=== PATIENT | male | born 1990 | race Caucasian/White ===

== ENCOUNTER 2016-12-09 11:24 | Emergency (ER) | payer OTHER ==
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
[2016-12-09] MEDS ORDERED: OXYCODONE-ACETAMINOPHEN 5-325 MG TABLET PO ONE (12:32)
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
[2016-12-09 13:02] VITALS: BP 110/75
== END 2016-12-09 12:58 | disposition home or self-care (01) ==
LOC: ER 11:24
DX: S99.922A Unspecified injury of left foot, initial encounter (principal); F17.210 Nicotine dependence, cigarettes, uncomplicated; V03.90XA Pedestrian on foot injured in collision with car, pick-up truck or van, unspecified whether traffic or nontraffic accident, initial encounter
CPT/HCPCS: 99283; 73630; 73650; L1902

== ENCOUNTER 2017-06-17 12:37 | Emergency (ER) | payer SELFPAY ==
[2017-06-17 12:41] VITALS: BP 123/76
[2017-06-17] MEDS ORDERED: METHYLPREDNISOLONE INJ 125 MG/2 ML SDV IM ONE (13:15)
[2017-06-17] MEDS ORDERED: LIDOCAINE 5% (700 MG) TRANSDERMAL ADH..PATCH TP ONE (13:15)
--- NOTE | 2017-06-17 13:15 | ER Document Report ---
HPI - HPI Pain Level: 5 Notes: Patient is a 27-year-old male who presents the ED complaining of low back pain 1 week status post injury while working. 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 Patient states since then he has had a constant dull pain to his low back without any radiation into his lower extremities. He denies any saddle anesthesia, numbness/tingling, muscle weakness/paralysis, loss of control of bowel or bladder, or urinary retention. He still eating and drinking without any difficulties. Patient denies any procedures to his back including injections patient denies any IV drug use. Denies any drug allergies, daily medications, significant past medical history otherwise. Denies any recent travel, illness, sick contacts. Denies any fever , headaches, URI, sore throat, chest pain, palpitations, syncope, cough, wheeze , shortness of breath, dyspnea, abdominal pain, nausea/vomiting/diarrhea, dysuria, hematuria, flank pain, or rash. + smoking history. - ROS Notes: REVIEW OF SYSTEMS: CONSTITUTIONAL : Denies fever, chills, or sweats. Denies recent illness. EENT: Denies eye, ear, throat, or mouth pain or symptoms. Denies nasal or sinus congestion or discharge. Denies throat, tongue, or mouth swelling or difficulty swallowing. CARDIOVASCULAR: Denies chest pain. Denies palpitations or racing or irregular heart beat. Denies ankle edema. RESPIRATORY: Denies cough, cold, or chest congestion. Denies shortness of breath, difficulty breathing, or wheezing. GASTROINTESTINAL: Denies abdominal pain or distention. Denies nausea, vomiting , or diarrhea. Denies blood in vomitus, stools, or per rectum. Denies black, tarry stools. Denies constipation. GENITOURINARY: Denies difficulty urinating, painful urination, burning, frequency, blood in urine, or discharge. MUSCULOSKELETAL: see hpi SKIN: Denies rash, lesions or sores. NEUROLOGICAL: Denies confusion or altered mental status. Denies passing out or loss of consciousness. Denies dizziness or lightheadedness. Denies headache. Denies weakness or paralysis or loss of use of either side. Denies problems with gait or speech. Denies sensory loss, numbness, or tingling. ALL OTHER SYSTEMS REVIEWED AND NEGATIVE. Dictation was performed using [email or web address] voice recognition software - CARDIOVASCULAR Cardiovascular: DENIES: Chest pain - DERM Skin Color: Normal Past Medical History - Social History Smoking Status: Current Every Day Smoker Frequency of alcohol use: None Drug Abuse: None Family History: Reviewed & Not Pertinent Patient has suicidal ideation: No Patient has homicidal ideation: No Renal/ Medical History: Denies: Hx Peritoneal Dialysis Psychiatric Medical History: Reports: Hx Depression Surgical Hx: Negative Past Surgical History: Reports: Other - PRK both eyes Vertical Provider Document - CONSTITUTIONAL Agree With Documented VS: Yes Notes: PHYSICAL EXAMINATION: GENERAL: Well-appearing, well-nourished and in no acute distress. NECK: Normal range of motion, supple without lymphadenopathy. No rigidity/ meningismus. LUNGS: Breath sounds clear to auscultation bilaterally and equal. No wheezes rales or rhonchi. HEART: Regular rate and rhythm without murmurs, rubs, gallops. ABDOMEN: Soft, nontender, nondistended abdomen. No guarding, no rebound. No masses appreciated. Normal bowel sounds present. No CVA tenderness bilaterally. No pulsatile mass. Musculoskeletal: LE's b/l: FROM to passive/active. Strength 5+/5. No focal deficits noted. Back: FROM to passive/active. Strength 5+/5. No step-offs/deformities. + mild tenderness to Rt L-paraspinal mm with mild spasming. No vertebral point tenderness. Extremities: No cyanosis, clubbing, or edema b/l. Peripheral pulses 2+. Capillary refill less than 2 seconds. NEUROLOGICAL: Normal speech, normal gait. Normal sensory, motor exams. Reflexes 2+ b/l. PSYCH: Normal mood, normal affect. SKIN: Warm, Dry, normal turgor, no rashes or lesions noted. - INFECTION CONTROL TRAVEL OUTSIDE OF THE [place] IN LAST 30 DAYS: No - RESPIRATORY O2 Sat by Pulse Oximetry: 98 Course - Re-evaluation Re-evalutation: 06/17/17 13:17 Patient is afebrile, well-hydrated, 27-year-old male presents to the ED with acute low back strain based on H&P today. Vitals are stable. PE otherwise unremarkable for any focal neurological deficits. There is no bony or vertebral point tenderness. No imaging warranted at this time. Low suspicion for any cauda equina syndrome, explaining/ruptured AAA, epidural mass lesion/ abscess, herniated disc causing severe spinal stenosis, fracture, meningitis, or any other systemic infection at this time. Solu-Medrol 125 mg given IM today along with a Lidoderm patch. I will send him home with meloxicam, Voltaren gel, and baclofen to use as directed. Recheck with your PCM in 2-3 days. Conservative measures otherwise for symptoms. Consider consult orthopedics, chiropractors, physical therapy. Return to ED with any worsening/ concerning symptoms otherwise as reviewed in discharge. Patient is in agreement. - Vital Signs Vital signs: Temp Pulse Resp BP Pulse Ox 98.4 F 68 18 123/76 98 06/17/17 12:39 06/17/17 12:39 06/17/17 12:39 06/17/17 12:39 06/17/17 12:39 Discharge - Discharge Clinical Impression: Low back strain Qualifiers: Encounter type: initial encounter Qualified Code(s): S39.012A - Strain of muscle, fascia and tendon of lower back, initial encounter Condition: Stable Disposition: HOME, SELF-CARE Instructions: Ice Packs ([facility]), Warm Packs ([facility]), Low Back Pain ([facility]), Muscle Strain ([facility]), Stretching Exercises for the Back ([facility]), Muscle Relaxers ([facility]) Additional Instructions: Rest, Ice, Compression, Elevation take meds as directed Tylenol/ibuprofen as needed Light stretches daily Strength exercises as able Moist heat and massage may help F/u with your PCP([id number]) in 2-3 days for a recheck Consider consult(s) with Orthopedics, physical therapy, chiropractics for ongoing/worsening symptoms Return to the ED with any worsening symptoms and/or development of fever, headache, chest pain, palpitations, syncope, shortness of breath, trouble breathing, abdominal pain, n/v/d, blood in stool/urine, loss of control of bowel /bladder, urinary retention, muscle weakness/paralysis, numbness/tingling, or other worsening symptoms that are concerning to you. Prescriptions: Baclofen [Baclofen 10 mg Tablet] 5 mg PO BID PRN #10 tablet PRN Reason: Diclofenac Sodium [Voltaren] 4 gm TP QID PRN #100 gel..gm. PRN Reason: Meloxicam 7.5 mg PO BID PRN #20 tablet PRN Reason: Forms: Smoking Cessation Education Referrals: [facility] [Provider Group] - Follow up as needed [facility] [Provider Group] - Follow up as needed [facility] [Provider Group] - Follow up as needed
== END 2017-06-17 14:09 | disposition home or self-care (01) ==
LOC: ER 12:37
DX: S39.012A Strain of muscle, fascia and tendon of lower back, initial encounter (principal); X58.XXXA Exposure to other specified factors, initial encounter; Y93.89 Activity, other specified; Y99.0 Civilian activity done for income or pay; F17.200 Nicotine dependence, unspecified, uncomplicated
CPT/HCPCS: 99283

== ENCOUNTER 2017-11-28 05:31 | Emergency (ER) | payer OTHER ==
[2017-11-28 05:35] VITALS: BP 114/71
--- NOTE | 2017-11-28 06:08 | ER Document Report ---
ED General - General Chief Complaint: Back Pain Stated Complaint: HIP AND LEG PAIN Time Seen by Provider: 11/28/17 06:05 Mode of Arrival: Ambulatory Information source: Patient Notes: 27-year-old male multiple allergies presents with complaints of right hip pain. Patient notes he was lifting some concrete had a twisting motion and felt a pop in his hip. Patient notes he is able to ambulate bear weight. Patient denies any loss of bowel or bladder function denies any numbness or weakness in the leg but admits the pain down his leg TRAVEL OUTSIDE OF THE [place] IN LAST 30 DAYS: No - HPI Onset: Other - 3 days Onset/Duration: Persistent Quality of pain: Sharp Severity: Mild Pain Level: 1 Associated symptoms: Body/muscle aches Exacerbated by: Movement, Walking Relieved by: Denies, Other - Patient has been taking Aleve Similar symptoms previously: No Recently seen / treated by doctor: No - Related Data Allergies/Adverse Reactions: acetaminophen [From Vicodin] Allergy (Verified 11/28/17 05:32) hydrocodone [From Vicodin] Allergy (Verified 11/28/17 05:32) ketorolac [From Toradol] Allergy (Verified 11/28/17 05:32) tramadol Allergy (Verified 11/28/17 05:32) Past Medical History - Social History Smoking Status: Current Every Day Smoker Cigarette use (# per day): Yes Chew tobacco use (# tins/day): No Smoking Education Provided: No Family History: Reviewed & Not Pertinent Renal/ Medical History: Denies: Hx Peritoneal Dialysis Psychiatric Medical History: Reports: Hx Depression Past Surgical History: Reports: Other - PRK both eyes Review of Systems - Review of Systems Notes: REVIEW OF SYSTEMS: CONSTITUTIONAL : Denies fever, chills, or sweats. Denies recent illness. EENT: Denies eye, ear, throat, or mouth pain or symptoms. Denies nasal or sinus congestion or discharge. Denies throat, tongue, or mouth swelling or difficulty swallowing. CARDIOVASCULAR: Denies chest pain. Denies palpitations or racing or irregular heart beat. Denies ankle edema. RESPIRATORY: Denies cough, cold, or chest congestion. Denies shortness of breath, difficulty breathing, or wheezing. GASTROINTESTINAL: Denies abdominal pain or distention. Denies nausea, vomiting , or diarrhea. Denies blood in vomitus, stools, or per rectum. Denies black, tarry stools. Denies constipation. GENITOURINARY: Denies difficulty urinating, painful urination, burning, frequency, blood in urine, or discharge. MUSCULOSKELETAL: Right hip pain SKIN: Denies rash, lesions or sores. HEMATOLOGIC : Denies easy bruising or bleeding. LYMPHATIC: Denies swollen, enlarged glands. NEUROLOGICAL: Denies confusion or altered mental status. Denies passing out or loss of consciousness. Denies dizziness or lightheadedness. Denies headache. Denies weakness or paralysis or loss of use of either side. Denies problems with gait or speech. Denies sensory loss, numbness, or tingling. Denies seizures. PSYCHIATRIC: Denies anxiety or stress. Denies depression, suicidal ideation, or homicidal ideation. ALL OTHER SYSTEMS REVIEWED AND NEGATIVE. Dictation was performed using [employer] voice recognition software PHYSICAL EXAMINATION: GENERAL: Well-appearing, well-nourished and in no acute distress. HEAD: Atraumatic, normocephalic. EYES: Pupils equal round and reactive to light, extraocular movements intact, sclera anicteric, conjunctiva are normal. ENT: Nares patent, oropharynx clear without exudates. Moist mucous membranes. NECK: Normal range of motion, supple without lymphadenopathy LUNGS: Breath sounds clear to auscultation bilaterally and equal. No wheezes rales or rhonchi. HEART: Regular rate and rhythm without murmurs ABDOMEN: Soft, nontender, nondistended abdomen. No guarding, no rebound. No masses appreciated. Musculoskeletal: Limited range of motion of the right hip secondary to pain patient is able to move toes knee with no difficulty no midline back pain NEUROLOGICAL: Cranial nerves grossly intact. Normal speech, normal gait. Normal sensory, motor exams PSYCH: Normal mood, normal affect. SKIN: Warm, Dry, normal turgor, no rashes or lesions noted. Physical Exam - Vital signs Vitals: Temp Pulse Resp BP Pulse Ox 97.6 F 76 18 114/71 98 11/28/17 05:32 11/28/17 05:32 11/28/17 05:32 11/28/17 05:32 11/28/17 05:32 Course - Re-evaluation Re-evalutation: 11/28/17 06:26 Patient is resting comfortably playing on his phone when I entered the room, is in no significant distress, patient denies any cauda equina concerns, patient noted not to have any narcotic prescriptions per the [place] database however has allergies to Tylenol hydrocodone Toradol and tramadol. Patient states he will be driving 8 hours away to see his children Patient denies IV drug use denies any fevers Patient's presentation is non-bony and he looks well otherwise we will treat with steroids and muscle relaxants After performing a Medical Screening Examination, I estimate there is LOW risk for EXPANDING OR RUPTURED ABDOMINAL AORTIC ANEURYSM, CAUDA EQUINA SYNDROME, EPIDURAL MASS LESION, or HERNIATED DISK CAUSING SEVERE SPINAL STENOSIS, thus I consider the discharge disposition reasonable. I have reevaluated this patient multiple times and no significant life threatening changes are noted. The patient and I have discussed the diagnosis and risks, and we agree with discharging home and close follow-up. We also discussed returning to the Emergency Department immediately if new or worsening symptoms occur with the understanding that symptoms and presentations can change. We have discussed the symptoms which are most concerning (e.g., saddle anesthesia, urinary or bowel incontinence or retention, changing or worsening pain) that necessitate immediate return. 11/28/17 06:28 - Vital Signs Vital signs: Temp Pulse Resp BP Pulse Ox 97.6 F 76 18 114/71 98 11/28/17 05:32 11/28/17 05:32 11/28/17 05:32 11/28/17 05:32 11/28/17 05:32 Discharge - Discharge Clinical Impression: Acute right hip pain, Sciatic leg pain Condition: Stable Disposition: HOME, SELF-CARE Instructions: Low Back Pain ([facility]), Muscle Strain ([facility]) Additional Instructions: Follow up with your physician tomorrow for further care or return to the ED IMMEDIATELY if symptoms worsen or new concerns occur. If you cannot afford to follow up with your primary care physician a list of low cost clinics have been provided at the end of your discharge papers as well. Prescriptions: Cyclobenzaprine HCl [Flexeril 10 mg Tablet] 10 mg PO TIDP PRN #20 tab PRN Reason: Prednisone [Deltasone 20 mg Tablet] 3 tab PO DAILY 5 Days tablet Forms: Return to Work
[2017-11-28] MEDS ORDERED: CYCLOBENZAPRINE HCL 10 MG TABLET PO ONE (06:20)
[2017-11-28] MEDS ORDERED: DEXAMETHASONE SOD PHOS INJ 10 MG/1 ML VIAL IM ONE (06:20)
== END 2017-11-28 06:56 | disposition home or self-care (01) ==
LOC: ER 05:31
DX: M25.551 Pain in right hip (principal); M54.30 Sciatica, unspecified side; X50.1XXA Overexertion from prolonged static or awkward postures, initial encounter; Y93.89 Activity, other specified; F17.210 Nicotine dependence, cigarettes, uncomplicated; Z88.5 Allergy status to narcotic agent; Z88.8 Allergy status to other drugs, medicaments and biological substances; Z88.6 Allergy status to analgesic agent
CPT/HCPCS: 99283

== ENCOUNTER 2017-12-28 17:03 | Emergency (ER) | payer OTHER ==
--- NOTE | 2017-12-28 17:29 | ER Document Report ---
HPI - HPI Patient complains to provider of: right hand pain Onset: This afternoon Onset/Duration: Sudden Quality of pain: Achy Severity: Severe Pain Level: 5 Context: Patient presents emergency department with complaints of right hand pain. Reports he was working on his car when something fell on his hand. Complains of pain and swelling. No open wounds, FROM, good cap refill. Offered Motrin or Tylenol for the pain but declines reports that will not help his pain. Associated Symptoms: None Exacerbated by: Movement Relieved by: Denies Similar symptoms previously: No Recently seen / treated by doctor: No Past Medical History - General Information source: Patient - Social History Smoking Status: Current Every Day Smoker Cigarette use (# per day): Yes Frequency of alcohol use: None Drug Abuse: None Family History: Reviewed & Not Pertinent - Medical History Medical History: Negative Renal/ Medical History: Denies: Hx Peritoneal Dialysis Psychiatric Medical History: Reports: Hx Depression Past Surgical History: Reports: Other - PRK both eyes Vertical Provider Document - CONSTITUTIONAL Agree With Documented VS: Yes Exam Limitations: No Limitations General Appearance: WD/WN, No Apparent Distress - nontoxic looking - INFECTION CONTROL TRAVEL OUTSIDE OF THE [place] IN LAST 30 DAYS: No - HEENT HEENT: Atraumatic, Normocephalic - NECK Neck: Supple - RESPIRATORY Respiratory: No Respiratory Distress O2 Sat by Pulse Oximetry: 94 - MUSCULOSKELETAL/EXTREMETIES Musculoskeletal/Extremeties: MAEW, FROM, Tender - right hand dorsal ttp, swelling to 4/5th metacarpal, good cap refill, no open wounds - NEURO Level of Consciousness: Awake, Alert, Appropriate Motor/Sensory: No Motor Deficit - DERM Integumentary: Warm, Dry Course - Re-evaluation Re-evalutation: 12/28/17 18:11 No obvious fracture noted on x-ray. Patient instructed on negative x-ray. He was offered David wrap and Motrin but declined. Reports he needs stronger than Motrin. I declined narcotics at this time instructed and follow-up with orthopedics if it continues to hurt. Patient reports it was a waste of time to come here. I apologized for lack of giving him narcotics, it is not indicated. - Vital Signs Vital signs: Temp Pulse Resp BP Pulse Ox 98.2 F 116 H 20 107/68 94 12/28/17 17:07 12/28/17 17:07 12/28/17 17:07 12/28/17 17:07 12/28/17 17:07 - Diagnostic Test Radiology reviewed: Image reviewed, Reports reviewed - neg Discharge - Discharge Clinical Impression: Right hand pain Condition: Stable Disposition: HOME, SELF-CARE Instructions: Use of [id number] Ibuprofen ([facility]), Ice & Elevation ([facility]) Additional Instructions: *You have been evaluated for right hand pain *Rest/Ice/Elevate *Follow up with orthopedics for continued pain-call for an appointment *Take Tylenol or motrin for pain as indicated *Return to ED for worsening condition, changes, needs
[2017-12-28 18:24] VITALS: BP 101/69
--- NOTE | 2017-12-28 19:04 | RADIOLOGY REPORT (SQ) ---
EXAM DESCRIPTION: HAND RIGHT 3 VIEWS COMPLETED DATE/TIME: 12/28/2017 5:42 pm REASON FOR STUDY: hand pain , something fell on the hand. COMPARISON: None. EXAM PARAMETERS: NUMBER OF VIEWS: Three views. TECHNIQUE: AP, lateral and oblique radiographic images acquired of the right hand. LIMITATIONS: None. FINDINGS: MINERALIZATION: Normal. BONES: No acute fracture or dislocation. SOFT TISSUES: Mild soft tissue swelling at the dorsum of the hand. No radiopaque foreign body. IMPRESSION: Soft tissue swelling. No radiographic evidence of acute fracture. TECHNICAL DOCUMENTATION: JOB ID: [id number] [employer]- All Rights Reserved
== END 2017-12-28 18:24 | disposition home or self-care (01) ==
LOC: ER 17:03
DX: M79.641 Pain in right hand (principal); F17.210 Nicotine dependence, cigarettes, uncomplicated
CPT/HCPCS: 99283